=== PATIENT | female | born 1975 | race Caucasian/White ===

== ENCOUNTER → 2020-11-26 10:23 | Outpatient (CLI) | payer BC, SELFPAY ==
--- NOTE | ~2020-11-26 | MM_ITS ---
EXAMINATION: MM screening [facility] w nathaniel HISTORY: Screening mammogram TECHNIQUE: Craniocaudal and mediolateral oblique 3-D tomosynthesis images were obtained and synthetic 2-D images were generated. CAD analysis was submitted and interpreted. COMPARISON: 12/01/2018 diagnostic left mammogram and limited left breast ultrasound 11/22/2018 bilateral digital screening mammogram BREAST PARENCHYMAL COMPOSITION: The breasts are heterogeneously dense, which may obscure small masses . FINDINGS: Interval resolution of circumscribed low-density left subareolar 3.65 cm mass, previously d ocumented as a simple 12:00 subareolar cyst. There is no evidence of suspicious mass, calcification, or architectural distortion to suggest malign donna in either breast. There has been no suspicious interval change. IMPRESSION: 1. No mammographic evidence of malignancy. 2. Recommend routine screening mammography in one year. BI-RADS Category 1: Negative Reviewed, dictated and finalized at location A.
== END ==
PROVIDERS: PCP Internal Medicine; Visit Provider Internal Medicine
DX: Z12.31 Encounter for screening mammogram for malignant neoplasm of breast (principal)
CPT/HCPCS: 77063; 77067

== ENCOUNTER 2023-04-11 14:55 | Outpatient (CLI) | payer BC, SELFPAY ==
--- NOTE | ~2023-04-11 | MM_ITS ---
EXAMINATION: MM screening [facility] w nathaniel HISTORY: Screening mammogram TECHNIQUE: Craniocaudal and mediolateral oblique 3-D tomosynthesis images were obtained and synthetic 2-D images were generated. CAD analysis was submitted and interpreted. COMPARISON: 11/26/2020, 11/22/2018 BREAST PARENCHYMAL COMPOSITION:The breasts are heterogeneously dense, which may obscure small masses. FINDINGS: No suspicious mass, calcification, or architectural distortion are identified in either [place] ast to suggest malignancy. There has been no suspicious interval change. IMPRESSION: No mammographic evidence of malignancy. Recommend routine screening mammography in one year. BI-RADS Category 1: Negative Reviewed, dictated and finalized at location .
== END 2023-04-11 14:56 ==
LOC: MICIMG 14:58
PROVIDERS: PCP Family Medicine; Visit Provider Family Medicine
DX: Z12.31 Encounter for screening mammogram for malignant neoplasm of breast (principal)
CPT/HCPCS: 77063; 77067

== ENCOUNTER 2025-01-29 13:18 | Outpatient (CLI) | payer BC, SELFPAY ==
--- NOTE | ~2025-01-29 | MM_ITS ---
EXAMINATION: MM screening [facility] w nathaniel HISTORY: Screening TECHNIQUE: Craniocaudal and mediolateral oblique 3-D tomosynthesis images were obtained and synthetic 2-D images were generated. CAD analysis was submitted and interpreted. COMPARISON: Comparison to multiple prior studies sequentially, with oldest reviewed study dated 11/22. BREAST PARENCHYMAL COMPOSITION: Dense: The breasts are heterogeneously dense, which may obscure small masses FINDINGS: There is no evidence of suspicious mass, calcification, or architectural distortion to sugg est malignancy in either breast. There has been no suspicious interval change. IMPRESSION: 1. No mammographic evidence of malignancy. 2. Recommend routine screening mammography in one year. BI-RADS Category 1: Negative Reviewed, dictated and finalized at location A.
== END 2025-01-29 13:19 | disposition home or self-care (01) ==
LOC: MICIMG 13:20
PROVIDERS: PCP Nurse Practitioner Family; Visit Provider Nurse Practitioner Family
DX: Z12.31 Encounter for screening mammogram for malignant neoplasm of breast (principal)
CPT/HCPCS: 77063; 77067